=== PATIENT | female | born 1955 | race Caucasian/White ===

== ENCOUNTER → 2017-11-04 | Day surgery (SDC) | payer BC ==
--- NOTE | 2017-11-05 16:25 | PATH ---
Surgical Pathology Report Patient Name: GUNNAR PAYAN [facility]. Rec. #: [id number] /Age/Gender: 1955 (Age: 62) / F Account: [id number] Location: [facility] Taken: 11/04/2017 Received: 11/04/2017 Reported: 11/05/2017 Physicians: Mouna Guerrero M.D. Specimen(s) Received RIGHT BREAST 5:30 0.80CM Clinical History Nonpalpable lesion Mammographic findings: Suspicious Ultrasound findings: Suspicious Final Diagnosis RIGHT BREAST, 5 - 6:00 MASS, ULTRASOUND GUIDED CORE BIOPSY: INVASIVE DUCTAL CARCINOMA, WELL DIFFERENTIATED, WITH CALCIFICATIONS. THE CARCINOMA MEASURES AT LEAST 7 MM. Results of Estrogen Receptor (ER) and Progesterone Receptor (OK) studies performed on block "1" at [facility] are as follows: ER (clone [id number] mouse monoclonal antibody by [employer]): 100% nuclear staining with strong intensity (Positive). OK (clone16 mouse monoclonal antibody by [employer]): 100% nuclear staining with strong intensity (Positive). Comment: Immunohistochemical stains performed and interpreted at [facility] show the following results: smooth muscle myosin heavy chain and p63 show loss of the myoepithelial cell layer in the areas of invasive carcinoma. Reports for Her 2 and Ki-67 to follow. This case was reviewed interdepartmentally with consensus on diagnosis. The results were discussed with Dr. Sanchez and Dr. Hathaway on November 05, 2017. Electronically Signed Margarito Chapa M.D. Addendum Reported: 11/07/2017 Addendum Diagnosis Results of Her2 (IHC) & Ki-67 studies performed on block "1" at [place], [place] ([id number]) are as follows: Her2 IHC (EP3 from [employer], formerly known as [id number], using [employer] Polymer Refine detection kit): 0 (Negative). Ki-67: ~5% (Low proliferative index). Positive and negative controls (internal if applicable) show appropriate results. Kayla Irving M.D. Gross Description Received in formalin labeled "right 5:30," are 4 christine-yellow, cylindrical portions of fibroadipose tissue ranging from 0.6-0.7 cm in length and averaging 0.1 cm in diameter. The specimens are submitted in toto in one cassette. Time to formalin fixation: Less than one minute Total formalin fixation time: Approximately 6 hours. 11/04/2017 [facility]11/04/2017
== END | disposition home or self-care (01) ==
LOC: JRADUS-SUR 11:36
PROVIDERS: ATTEND Obstetrics & Gynecology
PROC: 0HBT3ZX Excision of Right Breast, Percutaneous Approach, Diagnostic (ICD-10-PCS; principal; 2017-11-04)
DX: C50.811 Malignant neoplasm of overlapping sites of right female breast (principal)
CPT/HCPCS: 19083; 77065-TC; 87899; 88305-TC; 88341-TC; 88342-TC; A4648

== ENCOUNTER 2020-11-03 05:05 | Day surgery (SDC) | payer BC ==
[2020-11-01 12:59] VITALS: BMI 34.5
[2020-11-03 13:38] VITALS: TEMP 97.5
[2020-11-03 14:09] VITALS: BP 135/78; PULSE 70
== END 2020-11-03 14:20 | disposition home or self-care (01) ==
LOC: JASU-ENDO 05:05
PROVIDERS: ATTEND Internal Medicine Gastroenterology
PROC: 0DJD8ZZ Inspection of Lower Intestinal Tract, Via Natural or Artificial Opening Endoscopic (ICD-10-PCS; principal; 2020-11-03 12:45)
DX: Z12.11 Encounter for screening for malignant neoplasm of colon (principal); K64.8 Other hemorrhoids

== ENCOUNTER 2023-01-11 18:10 | Emergency (ER) | payer OTHER, BC ==
[2023-01-11 18:21] VITALS: BP 142/67; PULSE 72; RESP 18; TEMP 98.8; BMI 29.9
[2023-01-11] MEDS ORDERED: ACETAMINOPHEN 500 MG TABLET (FP) PO ONE (19:00)
[2023-01-11] MEDS ORDERED: DIPHTH,PERTUSS(ACELL),TET 0.5 ML DISP.SYRIN IM ONE ×2 (19:05→19:18)
[2023-01-11] MEDS ORDERED: ACETAMINOPHEN 325 MG TABLET (FP) ONE (19:17)
[2023-01-11] MEDS ORDERED: LIDOCAINE 1.5%-EPINEPHRINE 1:200,000/PF 30 ML VIAL IJ ONE (19:59)
[2023-01-11] MEDS ORDERED: LIDOCAINE 1%/EPI 1:100000 (50 ML MULTI DOSE VIAL) ONE (20:00)
== END 2023-01-11 21:06 | disposition home or self-care (01) ==
LOC: JERFT 18:10
PROC: 0HQKXZZ Repair Right Lower Leg Skin, External Approach (ICD-10-PCS; principal; 2023-01-11)
PROC: 3E0234Z Introduction of Serum, Toxoid and Vaccine into Muscle, Percutaneous Approach (ICD-10-PCS; 2023-01-11)
DX: S81.011A Laceration without foreign body, right knee, initial encounter (principal); M25.561 Pain in right knee; W19.XXXA Unspecified fall, initial encounter; Y92.009 Unspecified place in unspecified non-institutional (private) residence as the place of occurrence of the external cause
CPT/HCPCS: 12002-25; 73562-TC-RT-FY; 90471; 90715; 99283-25

== ENCOUNTER 2023-01-25 09:51 | Emergency (ER) | payer OTHER, BC ==
[2023-01-25 10:02] VITALS: BP 168/79; PULSE 79; RESP 18; TEMP 97.3; BMI 29.7
== END 2023-01-25 11:06 | disposition home or self-care (01) ==
LOC: JERFT 09:51
DX: Z48.02 Encounter for removal of sutures (principal)
CPT/HCPCS: 99281-25

== ENCOUNTER 2023-11-28 07:55 | Day surgery (SDC) | payer OTHER, BC ==
[2023-11-28 09:24] LABS: BASO % 0.3 % (0-2.0); EOS % 0.5 % (0-4.5); HEMATOCRIT 42.2 % (32.4-45.2); HEMOGLOBIN 14.3 GM/dL (10.7-15.3); LYMPH % 14.9 % (8-40); MCH 31.1 pg (25.7-33.7); MCHC 33.9 g/dl (32.0-36.0); MEAN PLT VOLUME 9.5 fl (7.5-11.1); MONO % 9.6 % (3.8-10.2); NEUT % 74.7 % (42.8-82.8); PLATELET COUNT 396 10^3/uL (134-434); RBC 4.59 M/mm3 (3.60-5.2); WHITE BLOOD COUNT 10.5 K/mm3 (4.0-10.0)
[2023-11-28 10:06] LABS: POTASSIUM 3.4 mmol/L (3.5-5.1)
[2023-11-28 10:08] LABS: ALBUMIN 3.8 g/dl (3.4-5.0); BLOOD UREA NITROGEN 18.9 mg/dL (7-18)
[2023-11-28 10:11] LABS: CREATININE 0.9 mg/dL (0.55-1.3)
[2023-11-28 10:12] LABS: BILIRUBIN,TOTAL 0.3 mg/dL (0.2-1)
[2023-11-28 10:13] LABS: TOT PROT 7.9 g/dl (6.4-8.2)
[2023-11-28] MEDS: METHYLPREDNISOLONE NA SUCC 100 MG in SODIUM CHLORIDE 50 ML IVPB ONE (10:27)
[2023-11-28] MEDS: diphenhydrAMINE HCL 25 MG CAPSULE (FP) PO ONE (10:27)
[2023-11-28] MEDS: ACETAMINOPHEN 500 MG TABLET (FP) PO ONE (10:27)
[2023-11-28] MEDS: RITUXIMAB 1,000 MG in DEXTROSE 5%-WATER - 400 ML IVPB ONE (11:14)
[2023-11-28 13:37] VITALS: RESP 18
[2023-11-28 13:45] VITALS: BP 159/72; PULSE 84; TEMP 98.2
== END 2023-11-28 13:00 | disposition home or self-care (01) ==
LOC: JCHEMO 07:55 → J7W 07:58 → JCHEMO 13:00
PROVIDERS: ATTEND Internal Medicine Rheumatology
PROC: 3E03305 Introduction of Other Antineoplastic into Peripheral Vein, Percutaneous Approach (ICD-10-PCS; principal; 2023-11-28)
PROC: 3E033GC Introduction of Other Therapeutic Substance into Peripheral Vein, Percutaneous Approach (ICD-10-PCS; 2023-11-28)
DX: Z51.11 Encounter for antineoplastic chemotherapy (principal); G58.7 Mononeuritis multiplex; M35.00 Sjogren syndrome, unspecified
CPT/HCPCS: 36415; 80053; 85025; 96375; 96413; J9312

== ENCOUNTER 2023-11-28 13:11 | Emergency (ER) | payer OTHER, BC ==
[2023-11-28 13:22] VITALS: BP 146/82; PULSE 81; RESP 16; TEMP 98.9; BMI 33.6
[2023-11-28 14:45] LABS: HEMATOCRIT 42.4 % (32.4-45.2); HEMOGLOBIN 14.5 GM/dL (10.7-15.3); MCH 31.1 pg (25.7-33.7); MCHC 34.1 g/dl (32.0-36.0); MEAN CELL VOLUME 91.1 fl (80-96); MEAN PLT VOLUME 9.2 fl (7.5-11.1); PLATELET COUNT 384 10^3/uL (134-434); RBC 4.65 M/mm3 (3.60-5.2)
[2023-11-28 15:15] LABS: POTASSIUM 4.1 mmol/L (3.5-5.1)
[2023-11-28 15:17] LABS: CALCIUM 9.6 mg/dL (8.5-10.1)
[2023-11-28 15:18] LABS: ALBUMIN 3.6 g/dl (3.4-5.0); BLOOD UREA NITROGEN 18.5 mg/dL (7-18)
[2023-11-28 15:19] LABS: ANISOCYTOSIS 0; HELMET CELLS 0; HOWELL-JOLLY BODIES 0; MACROCYTOSIS 0; OVALOCYTE 0; ROULEAU 0; SICKELED CELLS 0; TARGET CELLS 0; TEAR DROP CELLS 0; TOXIC GRANULATION 0
[2023-11-28 15:21] LABS: CREATININE 1.1 mg/dL (0.55-1.3)
[2023-11-28 15:22] LABS: BILIRUBIN,TOTAL 0.4 mg/dL (0.2-1); TOT PROT 7.4 g/dl (6.4-8.2)
== END 2023-11-28 16:30 | disposition home or self-care (01) ==
LOC: JER 13:11
DX: R07.89 Other chest pain (principal); R06.02 Shortness of breath; T78.40XA Allergy, unspecified, initial encounter; Z20.822 Contact with and (suspected) exposure to COVID-19
CPT/HCPCS: 0241U-QW; 36415; 71045-TC-FY; 80053; 84484; 85025; 93005; 93010; 99285-25

== ENCOUNTER 2023-12-12 08:04 | Day surgery (SDC) | payer OTHER, BC ==
[2023-12-12] MEDS: DEXAMETHASONE SOD PHOSPHATE/PF 10 MG/ML SDV IVPB ONE (08:30)
[2023-12-12] MEDS ORDERED: DEXAMETHASONE SOD PHOSPHATE 10 MG/1 ML VIAL ONE ×2 (08:41→09:36)
[2023-12-12] MEDS: DEXAMETHASONE SODIUM PHOSPHATE 20 MG in SODIUM CHLORIDE 50 ML IVPB ONE (10:47)
[2023-12-12] MEDS: ACETAMINOPHEN 500 MG TABLET (FP) PO ONE (10:54)
[2023-12-12] MEDS: DIPHENHYDRAMINE 50 MG in SODIUM CHLORIDE 50 ML IVPB ONE (11:14)
[2023-12-12] MEDS: RITUXIMAB 1,000 MG in DEXTROSE 5%-WATER - 400 ML IVPB ONE (11:34)
[2023-12-12 16:56] VITALS: RESP 18
[2023-12-12 17:11] VITALS: BP 153/71; PULSE 92; TEMP 97.7
== END 2023-12-12 16:25 | disposition home or self-care (01) ==
LOC: JCHEMO 08:04 → J7W 08:05 → JCHEMO 16:25
PROVIDERS: ATTEND Internal Medicine Rheumatology
DX: M35.00 Sjogren syndrome, unspecified (principal); G58.7 Mononeuritis multiplex
CPT/HCPCS: 96413; 96415; J1100; J9312

== ENCOUNTER 2024-05-08 14:03 | Emergency (ER) | payer OTHER, BC ==
[2024-05-08 14:17] VITALS: BP 184/81; PULSE 83; RESP 18; TEMP 98.8; BMI 34.3
[2024-05-08] MEDS: ACETAMINOPHEN 500 MG TABLET (FP) PO ONE (14:54)
[2024-05-08] MEDS ORDERED: ACETAMINOPHEN 500 MG TABLET (FP) ONE (14:55)
== END 2024-05-08 16:30 | disposition home or self-care (01) ==
LOC: JER 14:03
DX: S09.90XA Unspecified injury of head, initial encounter (principal); M54.50 Low back pain, unspecified; M25.552 Pain in left hip; R22.0 Localized swelling, mass and lump, head; W01.198A Fall on same level from slipping, tripping and stumbling with subsequent striking against other object, initial encounter
CPT/HCPCS: 70450-TC; 72125-TC; 72170-TC-FY; 73502-TC-LT-FY; 99284-25